=== PATIENT | female | born 1995 | race Caucasian/White ===

== ENCOUNTER 2018-10-04 12:18 | Outpatient (CLI) | payer BC ==
[2018-10-04] MEDS ORDERED: AMPICILLIN 2,000 MG in SODIUM CHLORIDE 0.9% 100 ML IVPB STA (12:54)
[2018-10-04 13:00] VITALS: BP 132/71; PULSE 82; RESP 16; TEMP 98.6
[2018-10-04] MEDS ORDERED: BETAMET ACET-BETAMETH SOD PHOS 6 MG/ML VIAL IM SCH (13:00)
[2018-10-04 13:23] LABS: Basophils % (A) 0 %; Eosinophils # (A) 0.1 k/uL (0-0.7); Eosinophils % (A) 1 %; HCT 39.2 % (34.0-46.0); HGB 12.8 gm/dL (11.4-16.0); Lymphocytes # (A) 2.1 k/uL (1.0-4.8); Lymphocytes % (A) 16 %; MCH 26.7 pg (25.0-35.0); MCHC 32.7 g/dL (31.0-37.0); MCV 81.7 fL (80.0-100.0); Mean Platelet Volume 8.5; Monocytes # (A) 0.7 k/uL (0-1.0); Monocytes % (A) 5 %; Neutrophils % (A) 76 %; Platelet Count 240 k/uL (150-450); RDW 15.5 % (11.5-15.5); WBC 13.1 k/uL (3.8-10.6)
--- NOTE | 2018-10-04 13:32 | P.HPOB ---
History of Present Illness H&P Date: 10/04/18 Chief Complaint: Leaking of fluid. This patient is a pleasant 23 yr female EDC 11/13/2018 estimated gestational age 34wk2d who presents with complaints of leaking of fluid since approximately 9:00 this morning. care has been uncomplicated. Denies contractions / vaginal bleeding. Exam here shows gross rupture of membranes. Nurse did do an exam which showed her to be 1cm dilated/thick. Bedside ultrasound shows vertex presentation. Review of Systems Constitutional: Denies chills, Denies fever Past Medical History Past Medical History: No Reported History History of Any Multi-Drug Resistant Organisms: None Reported Past Surgical History: No Surgical Hx Reported Past Anesthesia/Blood Transfusion Reactions: No Reported Reaction Past Psychological History: No Psychological Hx Reported Smoking Status: Current every day smoker Past Alcohol Use History: None Reported Past Drug Use History: None Reported Medications and Allergies Home Medications Medication Instructions Recorded Confirmed Type 78/Iron/Folate 1/Dha 1 tab PO ONCE 10/04/18 10/04/18 History [Prenate Dha Softgel] Allergies Allergy/AdvReac Type Severity Reaction Status Date / Time No Known Allergies Allergy Verified 10/04/18 12:30 Exam Vital Signs Temp Pulse Resp BP Pulse Ox 10/04/18 12:46 98.6 F 82 16 132/71 96 Intake and Output 10/03/18 10/04/18 10/04/18 22:59 06:59 14:59 Other: Weight 72.575 kg - OBG Physical Exam Abdomen: bowel sounds normal, no diffuse tenderness, no bruit present, no guarding noted, no hepatomegaly, no splenomegaly, no mass Vulva: both: normal Vagina: Gross rupture membranes. Cervix is 1 cm dilated. Cervix: no lesion, no discharge Uterus: enlarged Results blood work shows she is oh positive, rubella immune, RPR nonreactive, hepatitis B negative, HIV is nonreactive, ultrasounds have been normal, Glucola was normal. Assessment and Plan (1) 34 weeks gestation of Narrative/Plan: This is a pleasant 23-year-old 1 para 0 female 34-2/7 weeks gestation with premature rupture membranes. heart tones are category 1 and patient is not having regular contractions. Patient's been given Celestone and also 2 g of ampicillin due to unknown group B strep status. Due to gestational age, plan is to transfer this patient to a tertiary facility for care. I discussed with Dr. Arroyo at [facility] and easily accepted her in transfer. I explained this to the patient she understands the need for transfer. At this point there is no evidence of maternal compromise. Current Visit: Yes Status: Acute Code(s): Z3A.34 - 34 WEEKS GESTATION OF SNOMED Code(s): 46866186 (2) PROM (premature rupture of membranes) Current Visit: Yes Status: Acute Code(s): O42.90 - JESSICA ROM, 7TH0 BETW RUPT & ONST LABR, UNSP WEEKS OF GEST SNOMED Code(s): 62559016
--- NOTE | 2018-10-04 18:05 | P.MSEPDOC ---
Presenting Problems - Arrival Data Date of Arrival on Unit: 10/04/18 Time of Arrival on Unit: 12:18 Mode of Transport: Ambulatory - Complaint OB-Reason for Admission/Chief Complaint: Rule Out PROM Medical History - Information : 1 Para: 0 Term: 0 : 0 Abortions: Spontaneous or Elective: 0 Number of Living Children: 0 - Gestational Age Gestational Age by ANUPAM (wks/days): 34 Weeks and 2 Days - History Complications: Smoker Review of Systems - Review of Systems Constitutional: No problems Breast: No problems ENT: No problems Cardiovascular: No problems Respiratory: No problems Gastrointestinal: No problems Genitourinary: No problems Musculoskeletal: No problems Neurological: No problems Skin: No problems Vital Signs - Temperature Temperature: 98.6 F Temperature Source: Oral - Pulse Right Brachial Pulse Rate: 82 Pulse Assessment Method: Automatic Cuff - Respirations Respiratory Rate: 16 Oxygen Delivery Method: Room Air O2 Sat by Pulse Oximetry: 96 - Blood Pressure Right Arm Blood Pressure: 132/71 Blood Pressure Mean: 91 Blood Pressure Source: Automatic Cuff Medical Screen Scoring (Pre) - Cervical Exam Dilation: 1-3 cm = 1 Membranes: Ruptured = 3 - Uterine Contractions Frequency: > 5 minutes apart = 1 Duration: N/A Intensity: N/A - Maternal Vital Signs Maternal Temperature: N/A Maternal Blood Pressure: N/A Signs of Preeclampsia: N/A Maternal Respirations: N/A - Maternal Trauma Maternal Trauma: N/A - Assessment - Baby A Baseline FHR: 135 Heart Rate - NICHD Category: Category I (Normal) = 0 NST: Reactive Position: N/A Station: N/A - Total Score - Baby A Total Score - Baby A: 5 - Total Score - Baby B Total Score - Baby B: 5 - Total Score - Baby C Total Score - Baby C: 5 - Level of Risk - Baby A Level of Risk - Baby A: Low (0-5) - Level of Risk - Baby B Level of Risk - Baby B: Low (0-5) - Level of Risk - Baby C Level of Risk - Baby C: Low (0-5) Physician Notification (Pre) - Physician Notified Physician Notified Date: 10/04/18 Physician Notified Time: 12:46 Physician/Practitioner Notifed:: Dr. Gan New Order Received: Yes - Notification Comment Comment: Dr. Gan called and given report on pt in tr. Pt vs wnl. reactive nst. Positive amnisure. Vag exam of /-3. Gest. age of 34 04/26. Orders received to start. IV, send CBC, administer 2g Ampicillin, give 1 dose of celestone. Physician Notification (Post) - Notification Comment Comment: History and physical reported per Dr. Gan Disposition - Disposition OB Disposition: Transfer to other dept./facility Transferred to:: [facility] Discharge Date: 10/04/18 Discharge Time: 14:50 I agree with the RN Medical Screening Exam: Yes Risk & Benefit of care provided described in d/c instruction: Yes Diagnosis: PRETRM JESSICA ROM, ONSET LABOR > 24 HOURS FOL RUPT, THIRD TRI (Pt transferred due to PPROM at 34wks.)
--- NOTE | 2018-10-04 18:07 | P.DS ---
Providers Expected date of discharge: 10/04/18 Attending physician: Tico Gan Primary care physician: Stated None - Discharge Diagnosis(es) (1) 34 weeks gestation of Status: Acute (2) PROM (premature rupture of membranes) Status: Acute Hospital Course: See dictated H&P. 23yr female 34wk2d with PPROM. Transferred stable to [facility] due to prematurity. Patient Condition at Discharge: Stable Plan - Discharge Summary New Discharge Prescriptions: No Action 78/Iron/Folate 1/Dha [Prenate Dha Softgel] 1 tab PO ONCE Discharge Medication List 78/Iron/Folate 1/Dha [Prenate Dha Softgel] 1 tab PO ONCE 10/04/18 [History] Discharge Disposition: OTHER INSTITUTION NOT DEFINED
== END 2018-10-04 14:50 | disposition other institution (70) ==
LOC: FBPOP 12:18
PROVIDERS: ATTEND Obstetrics & Gynecology
DX: O42.013 Preterm premature rupture of membranes, onset of labor within 24 hours of rupture, third trimester (principal); O99.333 Smoking (tobacco) complicating pregnancy, third trimester; F17.200 Nicotine dependence, unspecified, uncomplicated; Z3A.34 34 weeks gestation of pregnancy
CPT/HCPCS: 59025; 99214; 96365; 96366; 96372; 84112; 85025; J0702; J0290

== ENCOUNTER 2019-11-04 20:31 | Emergency (ER) | payer BC, OTHER ==
[2019-11-04 20:43] VITALS: BP 138/88; PULSE 76; RESP 20; TEMP 98.8
[2019-11-04] MEDS ORDERED: IBUPROFEN 600 MG TAB PO STA (20:47)
--- NOTE | 2019-11-04 20:51 | ED ---
Upper Extremity HPI - General Chief Complaint: Extremity Injury, Upper Stated Complaint: Fall,R Hand Injury Time Seen by Provider: 11/04/19 20:42 Source: patient Mode of arrival: ambulatory Limitations: no limitations - History of Present Illness Initial Comments: 24 year old female patient presents to the emergency department today for evaluation of right hand pain. Patient states she was coming down the stairs missed the last couple steps and fell forward injuring the hand. States she is having swelling and pain over the dorsal aspect of the hand at the base of the fifth digit. Denies any numbness or tingling to the hand. She denies hitting her head or losing consciousness. Denies any neck or back pain. Denies any other injuries. Patient denies any headache, chest pain, shortness of breath, dizziness, weakness, abdominal pain, nausea, vomiting, or difficulties with bowel movements or urination. - Related Data Home Medications Medication Instructions Recorded Confirmed medroxyPROGESTERone [Depo-Provera] 150 mg IM Q90D 11/04/19 11/04/19 Previous Rx's Medication Instructions Recorded Ibuprofen [Motrin] 600 mg PO Q8HR PRN #30 tab 11/04/19 Allergies Allergy/AdvReac Type Severity Reaction Status Date / Time No Known Allergies Allergy Verified 11/04/19 20:43 Review of Systems ROS Statement: Those systems with pertinent positive or pertinent negative responses have been documented in the HPI. ROS Other: All systems not noted in ROS Statement are negative. Past Medical History Past Medical History: No Reported History History of Any Multi-Drug Resistant Organisms: None Reported Past Surgical History: Section Past Anesthesia/Blood Transfusion Reactions: No Reported Reaction Past Psychological History: No Psychological Hx Reported Smoking Status: Current every day smoker Past Alcohol Use History: Occasional Past Drug Use History: None Reported General Exam Limitations: no limitations General appearance: alert, in no apparent distress, other (This is a well- developed, well-nourished adult female patient in no acute distress. Vital signs upon presentation are temperature 98.8F, pulse 76, respirations 20, blood pressure 138/88, pulse ox 100% on room air.) Head exam: Present: atraumatic, normocephalic, normal inspection Eye exam: Present: normal appearance, PERRL, EOMI. Absent: scleral icterus, conjunctival injection, periorbital swelling Neck exam: Present: normal inspection, full ROM, other (Nontender, no step-off, no deformity to firm midline palpation of the posterior cervical spine. Full range of motion without pain or limitation.). Absent: tenderness, meningismus, lymphadenopathy Respiratory exam: Present: normal lung sounds bilaterally. Absent: respiratory distress, wheezes, rales, rhonchi, stridor Cardiovascular Exam: Present: regular rate, normal rhythm, normal heart sounds. Absent: systolic murmur, diastolic murmur, rubs, gallop, clicks Extremities exam: Present: full ROM, tenderness (Tenderness over the fourth and fifth mid carpals.), normal capillary refill, other (There is soft tissue swelling and ecchymosis noted over the fourth and fifth metacarpals distally. Skin is otherwise pink, warm, dry. Cap refills less than 3 seconds. Radial pulses 2+ and equal bilaterally. There is no anatomical snuffbox or wrist tenderness.). Absent: normal inspection, pedal edema, joint swelling, calf tenderness Neurological exam: Present: alert, oriented X3, CN II-XII intact Psychiatric exam: Present: normal affect, normal mood Skin exam: Present: warm, dry, intact, normal color. Absent: rash Course Vital Signs 11/04/19 20:38 Temperature 98.8 F Pulse Rate 76 Respiratory 20 Rate Blood Pressure 138/88 O2 Sat by Pulse 100 Oximetry Medical Decision Making - Medical Decision Making 24-year-old female patient presents to the emergency department today for evaluation of right hand pain after a fall. Physical examination did reveal soft tissue swelling and ecchymosis over the dorsal aspect of the hand over the distal fourth and fifth metacarpals. Neurovascular status is intact. X-ray was reviewed and show a distal fifth metacarpal fracture with no significant displacement. Patient was placed in an ulnar gutter splint. She is instructed to follow-up with the primary care physician for recheck in 1-2 days. She is instructed to follow-up with orthopedics as soon as possible. She is educated regarding rest, ice, elevation. She verbalizes understanding and agrees with this plan. - Lab Data Lab Results 11/04/19 Range/Units 20:49 Urine HCG, Qual Not Detected (Not Detectd) - Radiology Data Radiology results: report reviewed, image reviewed 3 views of the right hand are obtained. Report was reviewed in its entirety. Impression by Dr. Ostermann shows acute fracture distal fifth metacarpal. No significant displacement Disposition Clinical Impression: Fracture of fifth metacarpal bone of right hand Disposition: HOME SELF-CARE Condition: Good Instructions (If sedation given, give patient instructions): Hand Fracture (ED), Splint Care (ED) Additional Instructions: Rest, ice, elevate the right hand. We spent in place until follow-up with orthopedics, call in the morning for an appointment. Follow-up through primary care physician for recheck in 1-2 days. Return to the emergency department immediately for any new, worsening, or concerning symptoms. Prescriptions: Ibuprofen [Motrin] 600 mg PO Q8HR PRN #30 tab PRN Reason: Pain Is patient prescribed a controlled substance at d/c from ED?: No Referrals: Destinee Medina MD [Primary Care Provider] - 1-2 days Prateek Cheney DO [Doctor of Osteopathic Medicine] - 1-2 days Time of Disposition: 22:05
--- NOTE | 2019-11-04 21:19 | XR ---
EXAMINATION TYPE: XR hand complete RT DATE OF EXAM: 11/04/2019 COMPARISON: NONE HISTORY: Pain TECHNIQUE: 3 views FINDINGS: There is oblique fracture distal shaft of the fifth metacarpal. There is no dislocation. Olga int spaces are normal. IMPRESSION: Acute fracture distal fifth metacarpal. No significant displacement.
== END 2019-11-04 22:09 | disposition home or self-care (01) ==
LOC: EC 20:31
DX: S62.326A Displaced fracture of shaft of fifth metacarpal bone, right hand, initial encounter for closed fracture (principal); F17.200 Nicotine dependence, unspecified, uncomplicated; W10.9XXA Fall (on) (from) unspecified stairs and steps, initial encounter; Y92.009 Unspecified place in unspecified non-institutional (private) residence as the place of occurrence of the external cause
CPT/HCPCS: 29125; 81025; 99283

== ENCOUNTER → 2022-01-13 | Outpatient (CLI) | payer OTHER ==
--- NOTE | 2022-01-14 07:22 | US ---
EXAMINATION TYPE: Transabdominal DATE OF EXAM: 01/13/2022 4:17 PM COMPARISON: NONE CLINICAL HISTORY: Z36.89 confirm dates. EXAM PERFORMED: Transvaginal (TV) and Transabdominal (TA) EXAM MEASUREMENTS: GESTATIONAL AGE / DATING Dates by LMP: (10 weeks/3 days) EDC: 08/08/2022 Dates by First Scan: No previous this is first scan Dates by Current Scan for: (10 weeks/4 days) EDC: 08/07/2022 MATERNAL ANATOMY Uterus: wnl Right Ovary: Complex cystic mass most likely corpus luteum 1.5 x 1.5 x 1.6cm Left Ovary: wnl Post CDS / Adnexa: wnl Presence of free fluid: no Presence of corpus luteal cyst: yes Presence of subchorionic bleed: no GESTATION / SURVEY CRL: 3.6cm (10 weeks/4 days) Yolk Sac (normal less than 6mm): 4.1mm Heart Rate: 167 bpm Rhythm: Normal IUP: Viable IUP Date of LMP: 11/01/2021 IMPRESSION: Single viable intrauterine . Probable complex corpus luteal cyst.
== END | disposition home or self-care (01) ==
LOC: RADUSWWP 15:36
PROVIDERS: ATTEND Obstetrics & Gynecology
DX: Z36.89 Encounter for other specified antenatal screening (principal); Z3A.10 10 weeks gestation of pregnancy
CPT/HCPCS: 76801; 76817

== ENCOUNTER 2022-01-29 09:07 | Emergency (ER) | payer OTHER ==
[2022-01-29 09:16] VITALS: TEMP 98.3
--- NOTE | 2022-01-29 09:56 | ED ---
Female Urogenital HPI - General Chief complaint: Vaginal Bleeding Stated complaint: Vaginal Bleeding, 12 Wks Time Seen by Provider: 01/29/22 09:17 Source: patient, family, RN notes reviewed Mode of arrival: ambulatory Limitations: no limitations - History of Present Illness Initial comments: This is a 26-year-old female who presents to the emergency department for vaginal bleeding. Patient is 12 weeks and . The bleeding started last night and has continued today. States that this is light bleeding with possible small clots. She does not have any abdominal pain or cramping, nausea, or vomiting. She did not have any bleeding in her first , which was in 2019. She had an ultrasound 2 weeks ago that identified an intrauterine without any irregularities. She does have her first appointment with Dr. Gan, [employer] [employer] next week. Denies any fevers, chills, sore throat, cough, dyspnea, chest pain, palpitations, abdominal pain, nausea, vomiting, diarrhea, back pain, or headaches. MD Complaint: vaginal bleeding Onset/Timin -: days(s) Patient : Yes Number of weeks : 12 - Related Data Home Medications Medication Instructions Recorded Confirmed medroxyPROGESTERone [Depo-Provera] 150 mg IM Q90D 11/04/19 11/04/19 Previous Rx's Medication Instructions Recorded Ibuprofen [Motrin] 600 mg PO Q8HR PRN #30 tab 11/04/19 Cephalexin [Keflex] 500 mg PO Q8HR 3 Days #9 cap 01/29/22 Allergies Allergy/AdvReac Type Severity Reaction Status Date / Time No Known Allergies Allergy Verified 01/29/22 09:16 Review of Systems ROS Statement: Those systems with pertinent positive or pertinent negative responses have been documented in the HPI. ROS Other: All systems not noted in ROS Statement are negative. Past Medical History Past Medical History: No Reported History History of Any Multi-Drug Resistant Organisms: None Reported Past Surgical History: Section Past Anesthesia/Blood Transfusion Reactions: No Reported Reaction Past Psychological History: No Psychological Hx Reported Smoking Status: Current every day smoker Past Alcohol Use History: Occasional Past Drug Use History: None Reported General Exam Limitations: no limitations General appearance: alert, in no apparent distress Head exam: Present: atraumatic, normocephalic, normal inspection Respiratory exam: Present: normal lung sounds bilaterally. Absent: respiratory distress, wheezes, rales, rhonchi, stridor Cardiovascular Exam: Present: regular rate, normal rhythm, normal heart sounds. Absent: systolic murmur, diastolic murmur, rubs, gallop, clicks GI/Abdominal exam: Present: normal bowel sounds Neurological exam: Present: alert, oriented X3, CN II-XII intact Psychiatric exam: Present: normal affect, normal mood Skin exam: Present: warm, dry, intact, normal color. Absent: rash Course Vital Signs 01/29/22 01/29/22 09:14 11:38 Temperature 98.3 F Pulse Rate 91 75 Respiratory 20 18 Rate Blood Pressure 135/79 122/75 O2 Sat by Pulse 99 99 Oximetry Medical Decision Making - Medical Decision Making This is a 26-year-old female who presents to the emergency department for vaginal bleeding. Lab work was nonactionable. Patient is Rh+ and no RhoGAM is indicated. Ultrasound obtained and reveals a single live IUP. Urinalysis reveals a rare amount of bacteria. 3 day course of Keflex provided for asymptomatic bacteriuria. At this point, no clear cause of the patient's bleeding has been identified. Instructed her to follow up with Dr. Gan as scheduled and to discuss her emergency department visit with him. Return precautions reviewed in depth, the patient is instructed to return to the emergency department with any new, worsening, or concerning symptoms. Patient verbalized understanding. This case was discussed in detail with the attending ED physician. Presentation, findings, and treatment plan discussed in detail as well. - Lab Data Result diagrams: 01/29/22 09:25 01/29/22 09:25 Lab Results 01/29/22 01/29/22 01/29/22 Range/Units 09:25 09:25 09:25 WBC 9.4 (3.8-10.6) k/uL RBC 4.99 (3.80-5.40) m/uL Hgb 13.3 (11.4-16.0) gm/dL Hct 41.0 (34.0-46.0) % MCV 82.2 (80.0-100.0) fL MCH 26.7 (25.0-35.0) pg MCHC 32.5 (31.0-37.0) g/dL RDW 13.8 (11.5-15.5) % Plt Count 205 (150-450) k/uL MPV 7.8 Neutrophils % 73 % Lymphocytes % 20 % Monocytes % 4 % Eosinophils % 1 % Basophils % 0 % Neutrophils # 6.9 (1.3-7.7) k/uL Lymphocytes # 1.9 (1.0-4.8) k/uL Monocytes # 0.4 (0-1.0) k/uL Eosinophils # 0.1 (0-0.7) k/uL Basophils # 0.0 (0-0.2) k/uL Sodium 136 L (137-145) mmol/L Potassium 4.2 (3.5-5.1) mmol/L Chloride 106 (98-107) mmol/L Carbon Dioxide 23 (22-30) mmol/L Anion Gap 7 mmol/L BUN 7 (7-17) mg/dL Creatinine 0.47 L (0.52-1.04) mg/dL Est GFR (CKD-EPI)AfAm >90 (>60 ml/min/1.73 sqM) Est GFR (CKD-EPI)NonAf >90 (>60 ml/min/1.73 sqM) Glucose 133 H (74-99) mg/dL Calcium 9.2 (8.4-10.2) mg/dL Total Bilirubin 0.4 (0.2-1.3) mg/dL AST 21 (14-36) U/L ALT 14 (4-34) U/L Alkaline Phosphatase 49 (38-126) U/L Total Protein 6.6 (6.3-8.2) g/dL Albumin 4.2 (3.5-5.0) g/dL HCG, Quant 15642.7 mIU/mL Urine Color Light Yellow Urine Appearance Cloudy H (Clear) Urine pH 7.5 (5.0-8.0) Ur Specific Winifred 1.010 (1.001-1.035) Urine Protein Negative (Negative) Urine Glucose (UA) Negative (Negative) Urine Ketones Negative (Negative) Urine Blood Large H (Negative) Urine Nitrite Negative (Negative) Urine Bilirubin Negative (Negative) Urine Urobilinogen <2.0 (<2.0) mg/dL Ur Leukocyte Esterase Negative (Negative) Urine RBC 2 (0-5) /hpf Urine WBC 1 (0-5) /hpf Ur Squamous Epith Cells 4 (0-4) /hpf Amorphous Sediment Moderate H (None) /hpf Urine Bacteria Rare H (None) /hpf Urine Mucus Rare H (None) /hpf Blood Type Blood Type Recheck Bld Type Recheck Status 01/29/22 Range/Units 09:25 WBC (3.8-10.6) k/uL RBC (3.80-5.40) m/uL Hgb (11.4-16.0) gm/dL Hct (34.0-46.0) % MCV (80.0-100.0) fL MCH (25.0-35.0) pg MCHC (31.0-37.0) g/dL RDW (11.5-15.5) % Plt Count (150-450) k/uL MPV Neutrophils % % Lymphocytes % % Monocytes % % Eosinophils % % Basophils % % Neutrophils # (1.3-7.7) k/uL Lymphocytes # (1.0-4.8) k/uL Monocytes # (0-1.0) k/uL Eosinophils # (0-0.7) k/uL Basophils # (0-0.2) k/uL Sodium (137-145) mmol/L Potassium (3.5-5.1) mmol/L Chloride (98-107) mmol/L Carbon Dioxide (22-30) mmol/L Anion Gap mmol/L BUN (7-17) mg/dL Creatinine (0.52-1.04) mg/dL Est GFR (CKD-EPI)AfAm (>60 ml/min/1.73 sqM) Est GFR (CKD-EPI)NonAf (>60 ml/min/1.73 sqM) Glucose (74-99) mg/dL Calcium (8.4-10.2) mg/dL Total Bilirubin (0.2-1.3) mg/dL AST (14-36) U/L ALT (4-34) U/L Alkaline Phosphatase (38-126) U/L Total Protein (6.3-8.2) g/dL Albumin (3.5-5.0) g/dL HCG, Quant mIU/mL Urine Color Urine Appearance (Clear) Urine pH (5.0-8.0) Ur Specific Winifred (1.001-1.035) Urine Protein (Negative) Urine Glucose (UA) (Negative) Urine Ketones (Negative) Urine Blood (Negative) Urine Nitrite (Negative) Urine Bilirubin (Negative) Urine Urobilinogen (<2.0) mg/dL Ur Leukocyte Esterase (Negative) Urine RBC (0-5) /hpf Urine WBC (0-5) /hpf Ur Squamous Epith Cells (0-4) /hpf Amorphous Sediment (None) /hpf Urine Bacteria (None) /hpf Urine Mucus (None) /hpf Blood Type O Positive Blood Type Recheck No Previous Record Bld Type Recheck Status [facility] ONLY - Radiology Data Radiology results: report reviewed, image reviewed Disposition Clinical Impression: Vaginal bleeding during Disposition: HOME SELF-CARE Instructions (If sedation given, give patient instructions): (ED), at 11 to 14 Weeks (ED) Additional Instructions: Return to the emergency department with any new, worsening, or concerning symptoms. Take the antibiotic as prescribed for 3 days. Follow-up with Dr. Gan as scheduled. Prescriptions: Cephalexin [Keflex] 500 mg PO Q8HR 3 Days #9 cap Is patient prescribed a controlled substance at d/c from ED?: No Referrals: Destinee Medina MD [Primary Care Provider] - 1-2 days
[2022-01-29 09:59] LABS: Basophils % (A) 0 %; Eosinophils # (A) 0.1 k/uL (0-0.7); Eosinophils % (A) 1 %; HGB 13.3 gm/dL (11.4-16.0); Lymphocytes # (A) 1.9 k/uL (1.0-4.8); Lymphocytes % (A) 20 %; MCH 26.7 pg (25.0-35.0); MCHC 32.5 g/dL (31.0-37.0); MCV 82.2 fL (80.0-100.0); Mean Platelet Volume 7.8; Monocytes # (A) 0.4 k/uL (0-1.0); Monocytes % (A) 4 %; Neutrophils # (A) 6.9 k/uL (1.3-7.7); Neutrophils % (A) 73 %; Platelet Count 205 k/uL (150-450); RBC 4.99 m/uL (3.80-5.40); RDW 13.8 % (11.5-15.5); WBC 9.4 k/uL (3.8-10.6)
[2022-01-29 10:02] LABS: ALT 14 U/L (4-34); AST 21 U/L (14-36); African American GFR (CKD) >90 (>60 ml/min/1.73 sqM); Albumin 4.2 g/dL (3.5-5.0); Alkaline Phosphatase 49 U/L (38-126); Anion Gap 7 mmol/L; Blood Urea Nitrogen 7 mg/dL (7-17); Calcium 9.2 mg/dL (8.4-10.2); Carbon Dioxide 23 mmol/L (22-30); Chloride 106 mmol/L (98-107); Glucose 133 mg/dL (74-99); Non-African American GFR(CKD) >90 (>60 ml/min/1.73 sqM); Potassium 4.2 mmol/L (3.5-5.1); Sodium 136 mmol/L (137-145); Total Bilirubin 0.4 mg/dL (0.2-1.3); Total Protein 6.6 g/dL (6.3-8.2)
[2022-01-29 10:58] LABS: HCG,Quantitative Serum 60184.7 mIU/mL
--- NOTE | 2022-01-29 11:03 | US ---
EXAMINATION TYPE: Transabdominal DATE OF EXAM: 01/29/2022 10:43 AM COMPARISON: NONE CLINICAL HISTORY: Vaginal bleeding in . Bleeding EXAM PERFORMED: Transabdominal (TA) EXAM MEASUREMENTS: GESTATIONAL AGE / DATING Physician Established: Not yet established Dates by LMP: (12 weeks/4 days) EDC: 08/09/2022 Dates by First Scan: (10 weeks/3 days) EDC: 08/09/2022 Dates by Current Scan for: (12 weeks/3 days) EDC: 08/10/2022 MATERNAL ANATOMY Uterus: 10.8 x 7.0 x 8.4 cm Right Ovary: 3.7 x 1.6 x 2.0 cm Left Ovary: 2.7 x 1.2 x 1.5 cm Post CDS / Adnexa: wnl Presence of free fluid: no Presence of corpus luteal cyst: yes right Presence of subchorionic bleed: no GESTATION / SURVEY CRL: 5.88 cm (12 weeks/3 days) Heart Rate: 171 bpm Rhythm: Normal IUP: Viable IUP Beta HcG (if available): Not available at this time IMPRESSION: Single viable intrauterine .
[2022-01-29 11:07] LABS: Amorphous Sediment,Urine Moderate /hpf; Appearance,Urine Cloudy (Clear); Bacteria,Urine Rare /hpf; Bilirubin,Urine Negative (Negative); Blood,Urine Large (Negative); Color,Urine Light Yellow; Glucose,Urine (UA) Negative (Negative); Ketones,Urine Negative (Negative); Leukocyte Esterase,Urine Negative (Negative); Mucus,Urine Rare /hpf; Nitrite,Urine Negative (Negative); PH, Urine 7.5 (5.0-8.0); Protein,Urine Negative (Negative); RBC,Urine 2 /hpf (0-5); Squamous Epithelial Cell,Urine 4 /hpf (0-4); Urobilinogen,Urine <2.0 mg/dL (<2.0); WBC,Urine 1 /hpf (0-5)
[2022-01-29 11:39] VITALS: BP 122/75; PULSE 75; RESP 18
== END 2022-01-29 11:39 | disposition home or self-care (01) ==
LOC: EC 09:07
DX: O46.91 Antepartum hemorrhage, unspecified, first trimester (principal); F17.200 Nicotine dependence, unspecified, uncomplicated; Z3A.12 12 weeks gestation of pregnancy
CPT/HCPCS: 36415; 76801; 80053; 81001; 84702; 85025; 86900; 86901; 99284

== ENCOUNTER 2022-07-29 23:31 | Inpatient (IN) | payer OTHER ==
[2022-07-30] MEDS ORDERED: LIDOCAINE 0.5% (PF) 5 MG/ML (50 ML SDV) SQ PRN (00:03)
[2022-07-30] MEDS ORDERED: TRANEXAMIC ACID IN NACL,ISO-OS 1,000 MG in EMPTY BAG 1 BAG IV PRN ×2 (00:03→00:05)
[2022-07-30] MEDS ORDERED: miSOPROStoL 200 MCG TAB PO PRN ×2 (00:03→00:05)
[2022-07-30] MEDS ORDERED: CARBOPROST TROMETHAMINE 250 MCG/ML 1 ML AMP IM PRN (00:05)
[2022-07-30] MEDS ORDERED: CITRIC ACID-SODIUM CITRATE 15 ML CUP PO ONE (00:05)
[2022-07-30] MEDS ORDERED: OXYTOCIN 10 UNIT/ML 1 ML VIAL IM PRN (00:05)
[2022-07-30] MEDS ORDERED: METHYLERGONOVINE 0.2 MG/ML 1 ML AMP IM PRN (00:05)
[2022-07-30] MEDS ORDERED: LACTATED RINGERS 1,000 ML IV SCH (00:15)
[2022-07-30] MEDS ORDERED: OXYTOCIN 30 UNITS/500 ML NS 30 UNIT in SALINE 1 500ML.BAG IV SCH (00:15)
[2022-07-30 00:18] LABS: Basophils % (A) 0 %; Eosinophils # (A) 0.1 k/uL (0-0.7); Eosinophils % (A) 1 %; HCT 38.7 % (34.0-46.0); HGB 12.9 gm/dL (11.4-16.0); Lymphocytes # (A) 2.6 k/uL (1.0-4.8); Lymphocytes % (A) 20 %; MCH 26.3 pg (25.0-35.0); MCHC 33.4 g/dL (31.0-37.0); Mean Platelet Volume 9.4; Monocytes # (A) 0.6 k/uL (0-1.0); Monocytes % (A) 5 %; Neutrophils # (A) 9.5 k/uL (1.3-7.7); Neutrophils % (A) 72 %; Platelet Count 219 k/uL (150-450); RDW 14.7 % (11.5-15.5); WBC 13.2 k/uL (3.8-10.6)
--- NOTE | 2022-07-30 01:19 | P.HPOB ---
History of Present Illness H&P Date: 07/30/22 Chief Complaint: Spontaneous rupture membranes, contractions This is a 27-year-old female 2 para 1 with an estimated date of confinement of 08/08/2022, estimated gestational age of 38-5/7 weeks, presented to labor and delivery with complaints of spontaneous rupture membranes at approximately 9:45 PM with what she thought was clear fluid and contractions that began around the same time. She states the contractions are very frequent and painful. She is scheduled for a repeat section later this week and she had previously declined vaginal after . She states Dr. Gan did give her the option of attempting vaginal . On arrival to triage, she was noted to be 3 cm but rapidly made progress to 8 cm. She was also noted to have meconium-stained fluid and was ruptured. At that point, she stated she didn't care how the baby came out and verbally consented to a vaginal after . Her care has been with Dr. Gan and she has been on [place] throughout the due to history of delivery and has been followed by maternal- medicine.. labs: Blood type-O+ Antibody screen-negative Rubella-immune RPR-negative Hepatitis B surface antigen-negative Hepatitis C-negative HIV-nonreactive Toxoplasma-negative Hemoglobin-13.7 One hour Glucola-145, three-hour Glucola-within normal limits Group B streptococcus-negative GC/chlamydia/Trichomonas-negative Obstetrical history: . History of 1 delivery at [facility] in [place] at 34-2/7 weeks due to premature rupture of membranes and distress with and weight of 4 lbs. 7 oz. Gynecologic history: No history of sexual transmitted diseases. History of high-grade Pap smear in the past. Social history: Single. Works part-time as a blood bank business manager. Review of Systems Constitutional: Denies chills, Denies fever Eyes: denies blurred vision, denies pain Ears, nose, mouth and throat: Denies headache, Denies sore throat Cardiovascular: Denies chest pain, Denies shortness of breath Respiratory: Denies cough Gastrointestinal: Reports abdominal pain (Contractions) Genitourinary: Reports pelvic pain, Reports Musculoskeletal: Reports low back pain Integumentary: Denies pruritus, Denies rash Neurological: Denies numbness, Denies weakness Psychiatric: Denies anxiety, Denies depression Past Medical History Past Medical History: No Reported History History of Any Multi-Drug Resistant Organisms: None Reported Past Surgical History: Section Past Anesthesia/Blood Transfusion Reactions: No Reported Reaction Past Psychological History: No Psychological Hx Reported Smoking Status: Current every day smoker Past Alcohol Use History: Occasional Past Drug Use History: None Reported - Past Family History Father Family Medical History: Hypertension Medications and Allergies Home Medications Medication Instructions Recorded Confirmed Type Vit No.179/Iron/Folic 1 tab PO DAILY 07/30/22 07/30/22 History [ Tablet] Allergies Allergy/AdvReac Type Severity Reaction Status Date / Time No Known Allergies Allergy Verified 01/29/22 09:16 Exam Osteopathic Statement: *. No significant issues noted on an osteopathic structural exam other than those noted in the History and Physical/Consult. Intake and Output 07/29/22 07/29/22 07/30/22 14:59 22:59 06:59 Other: Weight 74.389 kg Gen.: Well-developed, well-nourished gravid female in obvious distress due to active labor HEENT: Within normal limits Heart: Regular rate and rhythm Lungs: Clear to auscultation bilaterally Abdomen: Cervix: On admission was 3 cm but upon my arrival she was noted to be completely dilated with head at +1 station and meconium fluid noted. heart tones: Reactive with some early variable decelerations and good variability Contractions: Every 1-2 minutes Extremities: Negative Homans Results Result Diagrams: 07/30/22 00:05 Abnormal Lab Results - Last 24 Hours (Table) 07/30/22 Range/Units 00:05 WBC 13.2 H (3.8-10.6) k/uL MCV 79.0 L (80.0-100.0) fL Neutrophils # 9.5 H (1.3-7.7) k/uL Assessment and Plan (1) 38 weeks gestation of Current Visit: Yes Status: Acute Code(s): Z3A.38 - 38 WEEKS GESTATION OF SNOMED Code(s): 66651953 (2) Previous delivery affecting Current Visit: Yes Status: Acute Code(s): O34.219 - MATERNAL CARE FOR UNSP TYPE SCAR FROM PREVIOUS DEL SNOMED Code(s): 203889443 (3) Meconium in amniotic fluid Current Visit: Yes Status: Acute Code(s): P96.83 - MECONIUM STAINING SNOMED Code(s): 247095191 Plan: Patient was initially admitted for repeat section due to active labor however with her rapid progression of labor and the fact that she was completely dilated on my arrival, I did have a conversation with her and asked her if she would like to proceed with vaginal after since it would take longer to get started with a section then to just push and have a vaginal delivery. She consented verbally to a vaginal after . CR NA was present and or room was opened and readily available if needed.
--- NOTE | 2022-07-30 01:21 | P.PROBDLV ---
Vaginal Delivery Note - . Vaginal Delivery Note: The patient was noted to be completely dilated on my arrival with 's head at +1 station. After verbally consenting to vaginal after , she began pushing. 's head came to a crown fairly shortly. With one further push, the 's head delivered across the perineum followed by the anterior shoulder and the remainder the . Nose and mouth were bulb suctioned with delivery and then was placed on mother's abdomen. Brisk cry was noted immediately. Cord was clamped and cut. was then able to vu with mother with skin to skin. A viable female infant was noted with scores of 8 at 1 minute and 9 at 5 minutes and weight of 5 lbs. 14 oz. Her placenta delivered shortly thereafter, intact, with a three-vessel cord and meconium-stained membranes. Uterus contracted well after uterine massage and IM oxytocin was given since her IV came out during pushing. Inspection of the perineum revealed a second-degree perineal laceration. This area was anesthetized with 1% lidocaine and then sutured with 3-0 and 2-0 Vicryl suture in the usual multilayer fashion. Estimated blood loss is approximately 200 mL's. Both mother and are in stable condition.
[2022-07-30] MEDS: IBUPROFEN 600 MG TAB PO PRN ×3 (03:24→19:57)
[2022-07-30] MEDS: ACETAMINOPHEN TAB 325 MG TAB PO PRN ×3 (08:39→23:20)
[2022-07-31] MEDS: IBUPROFEN 600 MG TAB PO PRN (04:24)
[2022-07-31 07:46] VITALS: BP 137/81; PULSE 57; RESP 18; TEMP 98.5
--- NOTE | 2022-07-31 11:16 | P.DS ---
Providers Date of admission: 07/29/22 23:47 Expected date of discharge: 07/31/22 Attending physician: Tico Gan Primary care physician: Stated None - Discharge Diagnosis(es) (1) 38 weeks gestation of Current Visit: Yes Status: Acute (2) Previous delivery affecting Current Visit: Yes Status: Acute (3) Meconium in amniotic fluid Current Visit: Yes Status: Acute Hospital Course: This is a 27-year-old female 2 para 1 at 38-5/7 weeks who presented in active labor. She was scheduled to have a repeat section later this week however after arrival she began progressing very rapidly in labor and consented verbally to a vaginal . She underwent a successful vaginal after section on 07/30/2022 and delivered a viable female with scores of 8 at 1 minute and 9 at 5 minutes and infant weight of 5 lbs. 14 oz. Her course has been uncomplicated. Lochia has been decreasing. Her pain is been fairly well-controlled with ibuprofen. She is bottle feeding. Vital signs are stable. Abdomen is soft with fundus firm and nontender. Extremities show negative Homans. Impression is status post vaginal delivery after section day #1. Plan is to discharge home today. Routine instructions are given. She is advised to follow up with Dr. Gan in the office in 6 weeks for a check. He is advised to call the office if she has any further questions or concerns prior to her appointment time. She will be given a prescription for ibuprofen. Procedures: Vaginal after section-viable female Patient Condition at Discharge: Stable Plan - Discharge Summary New Discharge Prescriptions: New Ibuprofen [Motrin] 600 mg PO Q6HR PRN #60 tab PRN Reason: Pain Continue Vit No.179/Iron/Folic [ Tablet] 1 tab PO DAILY Discharge Medication List Vit No.179/Iron/Folic [ Tablet] 1 tab PO DAILY 07/30/22 [History] Ibuprofen [Motrin] 600 mg PO Q6HR PRN #60 tab 07/31/22 [Rx] Follow up Appointment(s)/Referral(s): Tico Gan MD [STAFF PHYSICIAN] - 6 Weeks Activity/Diet/Wound Care/Special Instructions: Instructions 1. Do not begin any exercise program for 3 weeks. 2. Do not resume sexual relations for 3 weeks or longer if uncomfortable. 3. You may take tub baths or showers at any time. 4. You may use tampons if desired after 3 weeks. 5. Keep the area of episiotomy (stitches) clean and dry. 6. If you are not nursing, wear a good fitting, supportive bra during the day and limit fluid intake for at least 1 week to prevent breast engorgement. 7. Call the office, [phone], within the next week to make appointment for your 6 week checkup if it has not already been made. 8. Report any of the following occurrences to the doctor promptly: a. Heavy, excessive bleeding b. Chills, fever c. Burning or frequency of urination d. Pain or redness and breasts if nursing e. Increasing pain or swelling in episiotomy (stitches). In addition to the above instructions, the following additional should be followed: 1. No heavy lifting or straining (exercising) until after 6 week checkup. 2. Keep abdominal incision clean and dry: You may wear a dressing if more comfortable. 3. Make office appointment for 10 days after going home or as instructed by her doctor. Discharge Disposition: HOME SELF-CARE
--- NOTE | 2022-08-01 11:59 | P.MSEPDOC ---
Presenting Problems - Arrival Data Date of Arrival on Unit: 07/29/22 Time of Arrival on Unit: 23:47 Mode of Transport: Wheelchair - Complaint OB-Reason for Admission/Chief Complaint: Possible Onset of Labor, Rule Out SROM Comment: contractions and leaking fluid Medical History - Information : 2 Para: 1 Term: 0 : 1 Abortions: Spontaneous or Elective: 0 Number of Living Children: 1 - Gestational Age Gestational Age by ANUPAM (wks/days): 38 Weeks and 5 Days - History Complications: Prior , Prior , Smoker Review of Systems - Review of Systems Constitutional: No problems Breast: No problems ENT: No problems Cardiovascular: No problems Respiratory: No problems Gastrointestinal: No problems Genitourinary: No problems Musculoskeletal: No problems Neurological: No problems Skin: No problems Vital Signs - Temperature Temperature: 98.5 F Temperature Source: Oral - Pulse Pulse Oximetery Pulse Rate: 57 Pulse Assessment Method: Pulse Oximetry - Respirations Respiratory Rate: 18 Oxygen Delivery Method: Room Air O2 Sat by Pulse Oximetry: 100 - Blood Pressure Right Arm Blood Pressure: 137/81 Blood Pressure Mean: 99 Blood Pressure Source: Automatic Cuff Medical Screen Scoring - Cervical Exam Dilation (cm): 3.5 Effacement (%): 90 Station: -1 Membranes: Ruptured - Uterine Contractions Frequency From (mins): 1 Frequency To (mins): 3 Duration From (seconds): 60 Duration To (seconds): 90 Intensity: Strong Resting: Soft to palpation - Assessment - Baby A Baseline FHR: 130 Heart Rate - NICHD Category: Category I (Normal) Physician Notification - Physician Notified Physician Notified Date: 07/29/22 Physician Notified Time: 23:54 Physician: Birdie Wei New Order Received: Yes - Notification Comment Comment: Dr Wei called, notified of pt status, GA, G/P, cervical exam, positive. amnisure, scheduled for repeat section on 08/04/2022. Prepare pt for . section. Dr. Wei on her way in. Maternal Triage Index - Maternal Triage Index Presenting for scheduled procedure w/no complaint: No - Stat/Priority 1 Stat Priority 1: No - Urgent/Priority 2 Urgent Priority 2: Yes Provider Notified: Birdie Wei Provider Notified Time: 23:54 Criteria Met for Priority 2: Pt arrives to triage with complaints of contra ctions every 1-2 minutes. Pt. feels as though her water may have broken. contraction pain 12/27. Pt is a repeat section and is scheduled to have a section. on 08/04/2022. Disposition - Disposition OB Disposition: Admit, LDRP Suite Discharge Date: 07/31/22 Discharge Time: 11:50 I agree with the RN Medical Screening Exam: Yes Case reviewed; plan agreed upon as documented in EMR&OBIX.: Yes Diagnosis: ENCOUNTER FOR FULL-TERM UNCOMPLICATED DELIVERY
== END 2022-07-31 11:50 | disposition home or self-care (01) | DRG 560 ==
LOC: FBPOP 23:31 → 4FBP 23:47
PROVIDERS: ADMIT Obstetrics & Gynecology; ATTEND Obstetrics & Gynecology
PROC: 10E0XZZ Delivery of Products of Conception, External Approach (ICD-10-PCS; principal; 2022-07-30)
PROC: 0KQM0ZZ Repair Perineum Muscle, Open Approach (ICD-10-PCS; 2022-07-30)
DX: O34.211 Maternal care for low transverse scar from previous cesarean delivery (principal); O62.3 Precipitate labor; O77.0 Labor and delivery complicated by meconium in amniotic fluid; O70.1 Second degree perineal laceration during delivery; F17.210 Nicotine dependence, cigarettes, uncomplicated; O99.334 Smoking (tobacco) complicating childbirth; Z37.0 Single live birth; Z3A.38 38 weeks gestation of pregnancy
CPT/HCPCS: 84112; 85025; 86850; 86900; 86901; 99213

== ENCOUNTER 2023-02-22 06:10 | Day surgery (SDC) | payer OTHER ==
[2023-02-17 14:58] VITALS: BMI 20.9
--- NOTE | 2023-02-21 07:17 | P.HPOB ---
History of Present Illness H&P Date: 02/21/23 Chief Complaint: Requesting permanent sterilization. This patient is a pleasant 28-year-old 2 para 2 female who presented to my office requesting permanent sterilization. Patient's had 2 previous deliveries and her partner will not get a vasectomy. She and I discussed other methods of control and she is requested laparoscopic tubal ligation for permanent sterilization. Past Medical History Past Medical History: No Reported History History of Any Multi-Drug Resistant Organisms: None Reported Past Surgical History: Section Past Anesthesia/Blood Transfusion Reactions: No Reported Reaction Past Psychological History: Anxiety, Depression Smoking Status: Current every day smoker Past Alcohol Use History: None Reported Past Drug Use History: None Reported - Past Family History Father Family Medical History: Hypertension Medications and Allergies Home Medications Medication Instructions Recorded Confirmed Type norethindrone-e.estradioL-iron 1 each PO DAILY 02/17/23 02/17/23 History [Junel Fe 1.5 mg-30 Mcg Tablet] Allergies Allergy/AdvReac Type Severity Reaction Status Date / Time No Known Allergies Allergy Verified 02/17/23 14:23 Exam - OBG Physical Exam Abdomen: bowel sounds normal, no diffuse tenderness, no bruit present, no guarding noted, no hepatomegaly, no splenomegaly, no mass Vulva: both: normal Cervix: no lesion, no discharge Uterus: normal size, normal contour Assessment and Plan Assessment: This is a pleasant 28-year-old 2 para 2 female who presents requesting permanent sterilization. Plan is laparoscopic bilateral fallopian tube cauterization. Patient understands this surgery and risks including risk of infection, bleeding, possible injury to bowel, bladder, vessels, and other organs. She understands that this procedure is considered permanent however there is a failure rate of less than 5 per thousand procedures done. She also understands if she becomes she has a 50% chance of a tubal or ectopic that require other surgery. We discussed the fact that this procedure is elective and that alternatives exist to it. All of her questions are answered and a written consent is obtained. (1) Family planning Status: Acute Code(s): Z30.09 - ENCOUNTER FOR OT GENERAL CNSL AND ADVICE ON CONTRACEPTION SNOMED Code(s): 921922613
[~2023-02-22 06:10] MED LIST: Pre Op ABX Message 1 EACH MISC MISCELLANE ONE
[2023-02-22] MEDS ORDERED: LACTATED RINGERS 1,000 ML IV SCH (06:40)
[2023-02-22] MEDS ORDERED: HYDROmorphone 0.5 MG/0.5 ML SYRINGE IVP PRN (06:40)
[2023-02-22] MEDS ORDERED: DEXAMETHASONE SOD PHOSPHATE 4 MG/ML 1 ML VIAL IV ONE (06:40)
[2023-02-22] MEDS ORDERED: LIDOCAINE 1% (10MG/ML) FOR IV START INTRADERMA PRN (06:40)
[2023-02-22] MEDS ORDERED: ONDANSETRON 4 MG/2 ML VIAL IVP ONE (06:40)
[2023-02-22] MEDS ORDERED: MIDAZOLAM 2 MG/2 ML VIAL IV PRN (06:40)
[2023-02-22] MEDS ORDERED: NEOSTIGMINE 1 MG/ML 10 ML VIAL ONE (07:18)
[2023-02-22] MEDS ORDERED: SUCCINYLCHOLINE CHLORIDE 200 MG/10 ML VIAL IV ONE (07:18)
[2023-02-22] MEDS ORDERED: GLYCOPYRROLATE 0.2 MG/ML 2 ML VIAL ONE (07:18)
[2023-02-22] MEDS ORDERED: PROPOFOL 10 MG/ML 20 ML VIAL IV ONE (07:18)
[2023-02-22] MEDS ORDERED: KETOROLAC 15 MG/ML 1 ML VIAL ONE (07:18)
[2023-02-22] MEDS ORDERED: MIDAZOLAM 2 MG/2 ML VIAL ONE (07:18)
[2023-02-22] MEDS ORDERED: ROCURONIUM 10 MG/ML (5 ML VIAL) IV ONE (07:18)
[2023-02-22] MEDS ORDERED: fentaNYL (PF) 50 MCG/ML 2 ML AMP ONE (07:18)
[2023-02-22] MEDS ORDERED: LIDOCAINE 1% INJ 10MG/ML (20 ML MDV) ONE (07:18)
[2023-02-22] MEDS ORDERED: BUPIVACAINE (PF) 0.25% 30 ML VIAL SQ ONE ×2 (07:48→08:04)
[2023-02-22] MEDS ORDERED: HYDROmorphone 0.5 MG/0.5 ML SYRINGE IVP ONE (08:28)
--- NOTE | 2023-02-22 08:32 | P.OP ---
Date of Procedure: 02/22/23 Preoperative Diagnosis: Multi parity desires permanent sterilization Postoperative Diagnosis: Same Procedure(s) Performed: Laparoscopic bilateral fallopian tube cauterization Anesthesia: JOSE ALFREDO Surgeon: Tico Gan Estimated Blood Loss (ml): 6 Urine output (ml): 26 Pathology: none sent Condition: stable Disposition: PACU Indications for Procedure: Please see dictated H&P for intimate details of this patient's admission. In brief summary this pleasant 28-year-old 2 para 2 female who presents for requested tubal cauterization for permanent sterilization. Patient understands this is a permanent procedure however there is a failure rate of less than 5 per thousand procedures done. She understands if she does become she has a 50% chance of a tubal or an ectopic . Patient also understands laparoscopic surgery and inherently has risks including risks of infection, bleeding, possible injury bowel, bladder, vessels, and other organs. All the patient's questions are answered and a written consent is obtained. Operative Findings: This patient normal appearing pelvis, normal uterus, tubes, ovaries. Description of Procedure: This patient is taken to the operating room where she is laid in the supine position. She subsequent undergoes general endotracheal anesthesia without incident. With an adequate level of anesthesia she's placed in the dorsal lithotomy position. She has a vaginal perineal abdominal prep and drape. I first good on below and placed a speculum in the vagina and visualize cervix. The anterior lip the cervix was grabbed with an Allis clamp. [place] cannula was placed in the endocervix and attached to the Allis clamp. A red Bell catheter is then placed in the bladder is drained and attached to the Allis clamp. This done I changed gloves and go above. Scalpels and taken and a 10 mm infraumbilical incision is made. Using a 10 mm blade-less optical trocar, I enter the peritoneal cavity under direct visualization. With peritoneal placement confirmed pneumoperitoneum is created to 12 mm of carbon dioxide gas. With this done the patient was placed in some Trendelenburg position. I then make a 5 mm incision through her previous scar in the midline. Through this 5 mm incision I placed a 5 mm blade-less trocar under direct visualization. With this done using a blunt probe I manipulate the uterus tubes and ovaries and all appears normal. I then grasped the left fallopian tube approximately 4 cm from its cornual insertion and cauterize a 2 cm segment of fallopian tube with bipolar cautery. Complete cauterization is noted by the volt meter. A similar technique is done on the right side with similar results. I then inspected the upper abdomen and all appears normal. The lower trochars then removed under direct visualization. Pneumoperitoneum was reduced and the upper trochars removed. Incisions then closed using a 4-0 Vicryl interrupted suture. Steri-Strips and sterile dressing is applied. I did infiltrate both incisions with Quarter percent Marcaine for postoperative pain control. I then good on below remove the Allis clamp and catheter. Procedure is then ended. All counts are correct 3. There are no complications. Patient is willing from anesthesia and taken recovery room satisfactory condition.
[2023-02-22] MEDS ORDERED: MEPERIDINE 50 MG/ML SYRINGE IVP ONE (08:35)
[2023-02-22 08:44] VITALS: TEMP 97.4
[2023-02-22 09:07] VITALS: BP 133/79
[2023-02-22 09:08] VITALS: RESP 16
[2023-02-22 09:31] VITALS: PULSE 56
== END 2023-02-22 09:26 | disposition home or self-care (01) ==
LOC: OR 06:10
PROVIDERS: ATTEND Obstetrics & Gynecology
DX: Z30.2 Encounter for sterilization (principal); F17.200 Nicotine dependence, unspecified, uncomplicated; Z82.49 Family history of ischemic heart disease and other diseases of the circulatory system; Z79.899 Other long term (current) drug therapy
CPT/HCPCS: 58670; 81025; J2250; J0330; J1100; J2710; J2175; J2405; J2001; J3010; J1885; J2704; J1170; J0665